=== PATIENT | male | born 1990 | race Caucasian/White ===

== ENCOUNTER 2025-11-19 17:37 | Observation (INO) ==
--- NOTE | 2025-11-19 17:48 | Emergency Department Note ---
Impression & Plan Choledocholithiasis, Cholelithiasis, Transaminitis ED Provider Note CHIEF COMPLAINT: Abdominal pain HISTORY OF PRESENTING ILLNESS: This 34-year-old male patient presents to the emergency department with his fiance and parents for evaluation of right upper quadrant abdominal pain for the past 3 days. He has also been having nausea and vomiting. His urine was darker in color as well, but no other urinary symptoms. Has not had much of an appetite and has not been drinking much from the nausea and vomiting. No measured fevers, but he has had chills and sweats. He denies any chest pain or SOB, but has increased pain in the RUQ when he takes a deep breath. He denies any problems with constipation, diarrhea, or change in his bowel movements. The patient is concerned about his gallbladder. He has had intermittent problems with his gallbladder over the past 1.5 years. Has not seen a surgeon for his gallbladder. REVIEW OF SYSTEMS: See HPI for pertinent positives and pertinent negatives. ALLERGIES: Amoxicillin - abdominal pain and diarrhea MEDICATIONS: None PAST MEDICAL HISTORY: Denies pertinent past medical or pertinent past surgical history other than T&A PHYSICAL EXAM: VITALS: Vitals are noted on the nurse's note and reviewed by myself. GENERAL: Non toxic, in no acute distress, non-diaphoretic. SKIN: No obvious significant jaundice. Capillary refill <2 sec. EYES: PERRLA. EOMI. Conjunctivae without injection. Possible mild scleral icterus. NOSE: Patent without discharge. MOUTH: Mucous membranes moist. Uvula midline. Airway patent. NECK: Supple without nuchal rigidity. HEART: Regular rate and rhythm without murmurs gallops or rubs. LUNGS: Clear to auscultation bilaterally without wheezes, rales or rhonchi. No retractions or accessory muscle use. ABDOMEN: Positive bowel sounds x 4. Normal tympanic percussion. Soft, tender to palpation in the right upper quadrant. No masses or hepatosplenomegaly. Mondragon sign negative. No CVA tenderness. No guarding, rigidity, or rebound tenderness. No focal RLQ or LLQ tenderness. MUSCULOSKELETAL: No gross musculoskeletal defects. NEURO: Patient was alert and oriented. No focal neurological deficits. DIFFERENTIAL DIAGNOSIS: Differential diagnosis includes hepatitis, pancreatitis, cholecystitis, cholelithiasis, appendicitis, kidney stone, pyelonephritis, UTI, gastritis, gastroenteritis, mesenteric adenitis, obstruction, constipation, hernia, abdominal abscess, perforation, diverticulitis, IBD, ischemic colitis, abdominal aortic aneurysm, testicular torsion, prostatitis, or others. ED COURSE AND MEDICAL DECISION MAKING: MEDICATIONS GIVEN: 1 L normal saline solution bolus. Tylenol 1000 mg IV and Zofran 4 mg IV. Zosyn 4.5 g IV. MONITOR: Continuous health unit coordinator: Order was placed for continuous health unit coordinator. Patient was placed on the health unit coordinator and continuous pulse ox. Patient was noted to be in normal sinus rhythm at an initial rate of 90 bpm per my interpretation. INTERPRETATION OF LABS: I interpreted the labs with full lab results as below in the lab section of this note. Laboratory results pertinent to the emergent complaint are discussed in the MDM section below. The patient was advised to follow up with their PCP and/or specialist(s) for further outpatient monitoring and management of any abnormal results. INTERPRETATION OF IMAGING: Imaging studies were interpreted by myself and read by radiology as per the imaging section of this note. The patient was advised to follow up with their PCP and/or specialist(s) for further outpatient management of any non-emergent abnormal findings. CONSULTATIONS: Dr. Senior of GI. Dr. Laboy of general surgery. On-call hospitalist MDM SUMMARY: I examined the patient. The patient has had right upper quadrant abdominal pain for the past 3 days. He has had intermittent problems with his gallbladder for the past 1.5 years per patient, but has not seen a surgeon for his gallbladder symptoms. The patient started with darker urine as well as decreased appetite, nausea, vomiting, chills, and sweats along with the upper abdominal pain today. An IV lock was placed and labs were drawn. The patient was given 1 L normal saline solution bolus. He was given Tylenol 1000 mg IV and Zofran 4 mg IV prior to the results of his elevated LFTs. The patient declined any additional medication for pain while in the ER. The patient's white blood cell count was elevated at 13.43. Hemoglobin normal at 16.6. Platelet count normal at 264. INR normal at 1.0 and PT normal at 10.8. Glucose elevated at 115, total bilirubin elevated 8.8, AST elevated 206, ALT elevated at 583, and alk phos elevated at 205. CMP otherwise normal. Magnesium normal. Lipase normal. Urinalysis with 1+ protein, trace ketones, positive nitrite, 3+ bilirubin, 1+ leukocyte esterase, and urine mucus. Chest x-ray negative for acute cardiopulmonary etiology. CT scan of the abdomen and pelvis with IV contrast showed cholelithiasis and choledocholithiasis resulting in mild intra and extrahepatic biliary ductal dilation. Right upper quadrant ultrasound showed cholelithiasis with common bile duct distention etiology which is not clearly seen on this exam. No sonographic evidence of acute cholecystitis. The patient did have abdominal pain and diarrhea after amoxicillin, but not a true amoxicillin allergy. The patient was given Zosyn 4.5 g IV without reaction in the ER. I spoke with Dr. Senior of GI via [place] text and he will be available for ERCP and GI consult. He recommended continuing antibiotics. He does not feel that MRCP is needed at this time. I also spoke with Dr. Laboy of general surgery who presented to the emergency department and evaluated the patient. Please refer to his dictation for further details. The patient will be admitted to the hospitalist service with GI and surgery on consult. Please refer to their dictation for further details. The patient's care was transferred in stable condition. DIAGNOSIS: Cholelithiasis with choledocholithiasis Past Med/Surg History Problem List (Updated 11/20/25 @ 02:27 by Junie Ramirez PA-C) Cholelithiasis (Acute) Abnormal urinalysis Transaminitis (Acute) Choledocholithiasis (Acute) Obese FHx: Crohn's disease In Father Medical History Acute URI of multiple sites Surgical History [place] teeth extracted History of tonsillectomy Family History Other Diabetes Denies family history of Ovarian cancer Prostate cancer Myocardial infarction Breast cancer Colorectal cancer Hypertension Social History Smoking Status: Never smoker Tobacco Type: Declines Second Hand Exposure: No; Do You Dip or Chew Tobacco: No; Tobacco Cessation Education Requested by Patient: No Hx Alcohol Use: No Hx Substance Use: No Preferred Language: Malay Communication Ability: Effective Grid Operator Required: No Beliefs That Will Affect Care: None marital status: Single Current Living Situation: Significant Other current occupational status: employed current occupation: Close Other Information That Helps Us Care for You: No Feels Safe at Home: Yes Safety Concerns: Feels Safe At This Time Diet: regular caffeine: Yes (coffee tea and soda) during the past year weight has: remained stable Dental Care, Regularly: No Physical Activity Frequency: 3-4 Times per Week Seatbelt Use: always Sunscreen Use: No Assistive Devices: None Allergies Allergies Allergy/AdvReac Type Severity Reaction Status Date / Time No Known Allergies Allergy Verified 06/14/25 11:35 Home Meds Home Medications Medication Instructions Recorded Confirmed No Known Home Medications 11/19/25 11/19/25 Results & Data (ED) Vital Signs Vital Signs - 24 hr 11/19/25 17:37 11/19/25 17:37 11/19/25 18:50 Temperature 36.6 C Temperature Source Temporal Artery Scan Pulse Rate 98 H 92 H Pulse Rate [Finger] Respiratory Rate 18 16 Blood Pressure 181/118 H Blood Pressure [Right Arm] Blood Pressure Mean 139 Blood Pressure Mean [Right Arm] Pulse Oximetry 100 Oxygen Delivery Method Sepsis Recent Fever Within 48 Hours No Sepsis New/Unexplained Change in Mental Status N/A Sepsis Action Taken by Nursing No Action Required 11/19/25 20:10 11/19/25 22:10 Temperature Temperature Source Pulse Rate Pulse Rate [Finger] 88 84 Respiratory Rate 20 18 Blood Pressure Blood Pressure [Right Arm] 137/92 140/92 Blood Pressure Mean Blood Pressure Mean [Right Arm] 107 108 Pulse Oximetry 96 97 Oxygen Delivery Method Room Air Room Air Sepsis Recent Fever Within 48 Hours Sepsis New/Unexplained Change in Mental Status Sepsis Action Taken by Nursing Laboratory Data 11/19/25 17:54 11/19/25 17:54 Lab Results 11/19/25 Range/Units 17:54 WBC 13.43 H (4.8-10.8) K/ul RBC 5.68 (4.70-6.10) M/uL Hgb 16.6 (14.0-18.0) g/dL Hct 46.5 (42.0-52.0) % MCV 81.9 (80.0-100.0) fL MCH 29.2 (25.0-34.0) pg MCHC 35.7 (32.0-36.0) g/dL RDW Std Deviation 36.3 L (36.4-46.3) fL RDW Coeff of Lor 12.2 (11.5-14.5) % Plt Count 264 (130-400) K/uL MPV 10.3 (9.4-12.4) fL Immature Gran % (Auto) 0.5 % Neut % (Auto) 86.5 % Lymph % (Auto) 7.6 % [place] % (Auto) 4.2 % Eos % (Auto) 1.0 % Baso % (Auto) 0.2 % Neut # (Auto) 11.61 H (1.40-6.50) K/uL Lymph # (Auto) 1.02 L (1.20-3.40) K/uL [place] # (Auto) 0.57 (0.11-0.59) K/uL Eos # (Auto) 0.13 (0.00-0.50) K/uL Baso # (Auto) 0.03 (0.00-0.20) K/uL Immature Gran # (Auto) 0.07 (0.01-0.20) K/uL PT 10.8 (9.0-12.0) Seconds INR 1.0 (0.9-1.1) Sodium 139 (136-145) mmol/L Potassium 3.9 (3.5-5.1) mmol/L Chloride 104 (98-107) mmol/L Carbon Dioxide 26 (21-32) mmol/L Anion Gap 9 (3-11) BUN 10 (6-23) mg/dl Creatinine 1.08 (0.6-1.4) mg/dl Est Cr Clr Drug Dosing 107.6 ml/min eGFR 91.78 BUN/Creatinine Ratio 9.3 L (10-20) Glucose 115 H (70-99(Fasting)) mg/dl Calcium 9.6 (8.6-10.3) mg/dl Magnesium 2.1 (1.7-2.4) mg/dl Total Bilirubin 8.8 H (0.2-1.0) mg/dl AST 206 H (13-39) U/L ALT 583 H (7-52) U/L Alkaline Phosphatase 205 H (34-104) U/L Total Protein 7.6 (6.0-8.3) gm/dl Albumin 4.8 (3.4-5.0) gm/dl Globulin 2.8 (2.5-4.0) gm/dl Albumin/Globulin Ratio 1.7 (0.9-2) Lipase 25 (11-82) U/L Administered Medications Pantoprazole Sodium (Protonix) 40 mg in 10 mls @ 5 mls/min IV DAILY FACUNDO Stop: 12/19/25 23:01 Last Admin: 11/19/25 23:48 Dose: 5 mls/min Documented By: MOISES Piperacillin Sod/Tazobactam Sod (Zosyn) 4.5 gm in 100 mls @ 25 mls/hr IV Q8H FACUNDO; Protocol Stop: 11/30/25 00:00 Last Admin: 11/19/25 23:54 Dose: 25 mls/hr Documented By: MOISES Sodium Chloride (Nss) 1,000 mls @ 80 mls/hr IV .[id number] FACUNDO Stop: 11/21/25 00:14 Last Admin: 11/19/25 23:56 Dose: 80 mls/hr Documented By: MOISES Discontinued Medications Sodium Chloride (Nss) 1,000 mls @ 999 mls/hr IV .[id number] ONE Stop: 11/19/25 18:57 Last Infusion: 11/19/25 19:27 Dose: Infused Documented By: Admin: 11/19/25 18:03 Dose: 999 mls/hr Documented By: ASA Acetaminophen (Ofirmev) 1,000 mg in 100 mls @ 400 mls/hr IV NOW STA Stop: 11/19/25 18:11 Last Infusion: 11/19/25 19:27 Dose: Infused Documented By: Admin: 11/19/25 18:02 Dose: 400 mls/hr Documented By: ASA Piperacillin Sod/Tazobactam Sod (Zosyn) 4.5 gm in 100 mls @ 200 mls/hr IV NOW ONE; Protocol Stop: 11/19/25 19:54 Last Infusion: 11/19/25 20:41 Dose: Infused Documented By: Admin: 11/19/25 20:07 Dose: 200 mls/hr Documented By: ROSALEE Lactated Ringer's (Lr) 1,000 mls @ 80 mls/hr IV .[id number] FACUNDO Stop: 11/22/25 23:01 Last Admin: 11/20/25 01:50 Dose: Not Given Documented By: MOISES Ioversol (Optiray 320 100ml) 93 ml IV ONCE ONE Stop: 11/19/25 19:03 Last Admin: 11/19/25 19:02 Dose: 93 ml Documented By: MARY Ondansetron HCl (Ondansetron Inj 2 Mg/Ml 2 Ml Vial) 4 mg IV NOW STA Stop: 11/19/25 17:58 Last Admin: 11/19/25 18:02 Dose: 4 mg Documented By: ASA Imaging Data Radiologist's Impression: Abdomen/Pelvis CT 11/19/25 17:43 CT of the abdomen pelvis with contrast Technique: Postcontrast axial images abdomen pelvis. Coronal and sagittal reformatted images made available for review Reference is made to prior ultrasound performed earlier on the same date Findings: Cholelithiasis without evidence of acute cholecystitis.. Mild intra and extrahepatic biliary ductal dilatation secondary to a common bile duct stone measuring 6 mm at the ampulla. Splenomegaly. Remaining solid abdominal organs unremarkable in appearance. No free air or intestinal obstruction. Urinary bladder is unremarkable. Bone windows demonstrate no focal abnormality Impression Cholelithiasis with choledocholithiasis resulting in mild intra and extrahepatic biliary ductal dilatation. Electronically signed by Amado Aly 11-19-2025 8:17 PM Chest X-Ray 11/19/25 17:57 Technique: A frontal view of the chest was obtained Findings: There are no confluent pulmonary infiltrates. The heart size is within normal limits. No pleural effusion or pneumothorax is seen. There is no definite pulmonary nodule. No fracture is noted. No foreign body is seen Impression: No active disease Electronically signed by Modesto Rios 11-19-2025 7:06 PM Gallbladder Ultrasound 11/19/25 19:17 Right upper quadrant ultrasound Technique: Grayscale and color Doppler ultrasound images of the right upper quadrant No comparison Findings: Common bile duct is dilated measuring 9.4 mm. Gallbladder wall is within normal limits. Cholelithiasis.Liver is unremarkable. Gallbladder lucas within normal limits. No pericholecystic fluid. Portal vein is patent. Pancreas is obscured by overlying bowel gas. Impression Cholelithiasis with common bile duct distention etiology which is not clearly seen on his exam. MRCP may be helpful further evaluation. No sonographic evidence of acute cholecystitis. Electronically signed by Amado Aly 11-19-2025 8:19 PM Discharge Plan Visit Data Chief Complaint: Abdominal Pain Stated Complaint: RUQ PAIN PAST 3 DAYS, CONCERN ABT GALLBLADDER ED Provider: Isabel Youngblood ED Midlevel Provider: Junie Ramirez Discharge Problem: Choledocholithiasis, Cholelithiasis, Transaminitis Patient Disposition: Admitted As Inpatient Condition: Fair Discharge Instructions Interventions: ED Discharge Assessment Last Done: 11/19/25 22:48
[2025-11-19] MEDS: ONDANSETRON INJ 2 MG/ML 2 ML VIAL IV STA (18:02)
[2025-11-19] MEDS: ACETAMINOPHEN 1,000 MG/100 ML VIAL IV STA (18:02)
[2025-11-19] MEDS: SODIUM CHLORIDE 0.9% 1,000 ML IV ONE (18:03)
[2025-11-19 18:21] LABS: Hematocrit (blood only) 46.5 % (42.0-52.0); Hemoglobin 16.6 g/dL (14.0-18.0); Immature Granulocytes # (auto) 0.07 K/uL (0.01-0.20); Immature Granulocytes % (auto) 0.5 %; Mean Corpuscular Hemoglobin 29.2 pg (25.0-34.0); Mean Corpuscular Volume 81.9 fL (80.0-100.0); Platelet Count 264 K/uL (130-400); RDW Standard Deviation 36.3 fL (36.4-46.3); Red Blood Count 5.68 M/uL (4.70-6.10); White Blood Count 13.43 K/ul (4.8-10.8)
[2025-11-19 18:38] LABS: Anion Gap 9.0 (3-11); Blood Urea Nitrogen 10.0 mg/dl (6-23); Calcium 9.6 mg/dl (8.6-10.3); Carbon Dioxide 26.0 mmol/L (21-32); Chloride 104.0 mmol/L (98-107); Creatinine Clr Calc Pharmacy 107.6 ml/min; Glucose 115.0 mg/dl (70-99(Fasting)); Potassium 3.9 mmol/L (3.5-5.1); Sodium 139.0 mmol/L (136-145)
[2025-11-19 18:46] LABS: INR 1.0 (0.9-1.1); Prothrombin Time 10.8 Seconds (9.0-12.0)
[2025-11-19 18:55] LABS: Appearance Urine Clear (Clear); Bacteria Urine Automated None Seen (None Seen); Cast Urine Automated 0-2 /lpf (0-2); Epithelial Cell Urine Auto 0-2 /hpf (0-2); Glucose Urine UA Negative (Negative); RBC Urine Automated 0-2 /hpf (0-2); WBC Urine Automated 0-5 /hpf (0-5)
[2025-11-19] MEDS: OPTIRAY 320 100ml IV ONE (19:02)
[2025-11-19 19:06] LABS: Alanine Aminotransferase 583.0 U/L (7-52); Albumin Globulin Ratio 1.7 (0.9-2); Albumin Level 4.8 gm/dl (3.4-5.0); Alkaline Phosphatase 205.0 U/L (34-104); Bilirubin,Total 8.8 mg/dl (0.2-1.0); Globulin 2.8 gm/dl (2.5-4.0); Lipase 25.0 U/L (11-82); Magnesium 2.1 mg/dl (1.7-2.4); Total Protein 7.6 gm/dl (6.0-8.3)
--- NOTE | 2025-11-19 19:06 | XRay Report ---
Technique: A frontal view of the chest was obtained Findings: There are no confluent pulmonary infiltrates. The heart size is within normal limits. No pleural effusion or pneumothorax is seen. There is no definite pulmonary nodule. No fracture is noted. No foreign body is seen Impression: No active disease Electronically signed by Modesto Rios 11-19-2025 7:06 PM
[2025-11-19] MEDS: PIPERACILLIN/TAZOBACTAM 4.5 GM/100 ML BAG IV ONE (20:07)
--- NOTE | 2025-11-19 20:17 | CT Scan Report ---
CT of the abdomen pelvis with contrast Technique: Postcontrast axial images abdomen pelvis. Coronal and sagittal reformatted images made available for review Reference is made to prior ultrasound performed earlier on the same date Findings: Cholelithiasis without evidence of acute cholecystitis.. Mild intra and extrahepatic biliary ductal dilatation secondary to a common bile duct stone measuring 6 mm at the ampulla. Splenomegaly. Remaining solid abdominal organs unremarkable in appearance. No free air or intestinal obstruction. Urinary bladder is unremarkable. Bone windows demonstrate no focal abnormality Impression Cholelithiasis with choledocholithiasis resulting in mild intra and extrahepatic biliary ductal dilatation. Electronically signed by Amado Aly 11-19-2025 8:17 PM
--- NOTE | 2025-11-19 20:19 | Ultrasound Report ---
Right upper quadrant ultrasound Technique: Grayscale and color Doppler ultrasound images of the right upper quadrant No comparison Findings: Common bile duct is dilated measuring 9.4 mm. Gallbladder wall is within normal limits. Cholelithiasis.Liver is unremarkable. Gallbladder lucas within normal limits. No pericholecystic fluid. Portal vein is patent. Pancreas is obscured by overlying bowel gas. Impression Cholelithiasis with common bile duct distention etiology which is not clearly seen on his exam. MRCP may be helpful further evaluation. No sonographic evidence of acute cholecystitis. Electronically signed by Amado Aly 11-19-2025 8:19 PM
--- NOTE | 2025-11-19 20:51 | Surgery Consultation ---
Date of Consultation November 19, 2025 Assessment & Plan (1) Choledocholithiasis: 34-year-old presents with choledocholithiasis. There is no evidence of cholecystitis on the ultrasound. He does have a bilirubin of 8. He will be admitted to the medicine service. He will be seen by gastroenterology who will need to do an ERCP. We will follow peripherally. History of Present Illness Reason for Consultation: Choledocholithiasis with cholecystitis Requesting Physician: ED physician Attending Physician: ED physician History of Present Illness 34-year-old gentleman whose been having right upper quadrant abdominal pain on and off for the past 3 weeks. This worsened on Tuesday. It was accompanied by nausea and vomiting. He then noticed some yellowing of his eyes. He has not been eating much. He denies fevers and chills. He denies other complaints. No abdominal surgeries in the past. Allergies Allergy/AdvReac Type Severity Reaction Status Date / Time No Known Allergies Allergy Verified 06/14/25 11:35 Patient History Medical History Acute URI of multiple sites Surgical History [place] teeth extracted History of tonsillectomy Family History Other Diabetes Denies family history of Ovarian cancer Prostate cancer Myocardial infarction Breast cancer Colorectal cancer Hypertension Social History Smoking Status: Never smoker Second Hand Exposure: No; Do You Dip or Chew Tobacco: No; Hx Alcohol Use: No Hx Substance Use: No Preferred Language: Pashto Communication Ability: Effective marital status: Single Current Living Situation: Significant Other current occupational status: employed current occupation: [employer] Feels Safe at Home: Yes Diet: regular caffeine: Yes (coffee tea and soda) during the past year weight has: remained stable Dental Care, Regularly: No Physical Activity Frequency: 3-4 Times per Week Seatbelt Use: always Sunscreen Use: No Review of Systems Review of Systems: All systems reviewed & are unremarkable except as noted in HPI & below Physical Exam Constitutional: WD/WN, vitals as above Eyes: PERRL, conjunctivae normal, anicteric sclerae Neck: trachea midline, no thyromegaly Respiratory: normal respiratory effort; no respiratory distress and no labored breathing Cardiovascular: Rate/Rhythm: regular rate and regular rhythm Gastrointestinal (Abdomen): Inspection/Auscultation: abdomen normal to inspection; abdomen not distended Percussion/Palpation: abdomen soft; abdomen nontender, no guarding and abdomen not rigid Skin: no rashes, warm and dry Psychiatric: A+Ox3, euthymic affect Results & Data Vital Signs (Past 12 Hours) Vital Signs Temp Pulse Pulse Resp BP BP Pulse Ox 11/19/25 20:10 88 20 137/92 96 11/19/25 18:50 92 H 11/19/25 17:37 16 11/19/25 17:37 36.6 C 98 H 18 181/118 H 100 O2 Del Method 11/19/25 20:10 Room Air 11/19/25 18:50 11/19/25 17:37 11/19/25 17:37 Laboratory Results 11/19/25 11/19/25 Range/Units Unknown 17:54 WBC 13.43 H (4.8-10.8) K/ul RBC 5.68 (4.70-6.10) M/uL Hgb 16.6 (14.0-18.0) g/dL Hct 46.5 (42.0-52.0) % MCV 81.9 (80.0-100.0) fL MCH 29.2 (25.0-34.0) pg MCHC 35.7 (32.0-36.0) g/dL RDW Std Deviation 36.3 L (36.4-46.3) fL RDW Coeff of Lor 12.2 (11.5-14.5) % Plt Count 264 (130-400) K/uL MPV 10.3 (9.4-12.4) fL Immature Gran % (Auto) 0.5 % Neut % (Auto) 86.5 % Lymph % (Auto) 7.6 % [place] % (Auto) 4.2 % Eos % (Auto) 1.0 % Baso % (Auto) 0.2 % Neut # (Auto) 11.61 H (1.40-6.50) K/uL Lymph # (Auto) 1.02 L (1.20-3.40) K/uL [place] # (Auto) 0.57 (0.11-0.59) K/uL Eos # (Auto) 0.13 (0.00-0.50) K/uL Baso # (Auto) 0.03 (0.00-0.20) K/uL Immature Gran # (Auto) 0.07 (0.01-0.20) K/uL PT 10.8 (9.0-12.0) Seconds INR 1.0 (0.9-1.1) Sodium 139 (136-145) mmol/L Potassium 3.9 (3.5-5.1) mmol/L Chloride 104 (98-107) mmol/L Carbon Dioxide 26 (21-32) mmol/L Anion Gap 9 (3-11) BUN 10 (6-23) mg/dl Creatinine 1.08 (0.6-1.4) mg/dl Est Cr Clr Drug Dosing 107.6 ml/min eGFR 91.78 BUN/Creatinine Ratio 9.3 L (10-20) Glucose 115 H (70-99(Fasting)) mg/dl Calcium 9.6 (8.6-10.3) mg/dl Magnesium 2.1 (1.7-2.4) mg/dl Total Bilirubin 8.8 H (0.2-1.0) mg/dl AST 206 H (13-39) U/L ALT 583 H (7-52) U/L Alkaline Phosphatase 205 H (34-104) U/L Total Protein 7.6 (6.0-8.3) gm/dl Albumin 4.8 (3.4-5.0) gm/dl Globulin 2.8 (2.5-4.0) gm/dl Albumin/Globulin Ratio 1.7 (0.9-2) Lipase 25 (11-82) U/L Urine Color [place] Urine Appearance Clear (Clear) Urine pH 5.5 (4.5-7.5) Ur Specific [place] 1.022 (1.000-1.030) Urine Protein 1+ H (Negative) Urine Glucose (UA) Negative (Negative) Urine Ketones Trace H (Negative) Urine Blood Negative (Negative) Urine Nitrite Positive A (Negative) Urine Bilirubin 3+ H (Negative) Urine Urobilinogen Negative (Negative) Ur Leukocyte Esterase 1+ H (Negative) Urine WBC (Auto) 0-5 (0-5) /hpf Urine RBC (Auto) 0-2 (0-2) /hpf U Hyaline Cast (Auto) 0-2 (0-2) /lpf U Epithel Cells (Auto) 0-2 (0-2) /hpf Urine Bacteria (Auto) None Seen (None Seen) Urine Mucus Present A (None Prsent) Urine Comment Diagnostic Findings Right upper quadrant ultrasound Technique: Grayscale and color Doppler ultrasound images of the right upper quadrant No comparison Findings: Common bile duct is dilated measuring 9.4 mm. Gallbladder wall is within normal limits. Cholelithiasis.Liver is unremarkable. Gallbladder lucas within normal limits. No pericholecystic fluid. Portal vein is patent. Pancreas is obscured by overlying bowel gas. Impression Cholelithiasis with common bile duct distention etiology which is not clearly seen on his exam. MRCP may be helpful further evaluation. No sonographic evidence of acute cholecystitis. Electronically signed by Amado Aly 11-19-2025 8:19 PM
--- NOTE | 2025-11-19 21:48 | History & Physical Report ---
Date of Service November 19, 2025 Assessment & Plan (1) Choledocholithiasis: (2) Transaminitis: (3) Abnormal urinalysis: Remy Huizar is a pleasant 34yo gentleman with no significant PMH who presented to the ED for 3-week history of waxing and waning abdominal pain that gradually worsened since 11/17. The pain was described as sharp, located in the RUQ associated with nausea, vomiting, and loss of appetite. Lab workup in the ED notable elevated bilirubin level, transaminitis, leukocytosis (13), and choledocholithiasis. He will be admitted and managed for choledocholithiasis. #Choledocholithiasis #Cholelithiasis CT imaging notable for choledocholithiasis with mild intra and extrahepatic biliary ductal dilatation Bilirubin 8.8 -admit to med-surg -IV PPI for acid suppression -Pain management: morphine 2mg q3hrs prn for moderate pain and 4mg q3hrs for severe pain -Zofran prn for nausea, vomiting -continue Zosyn 4.5g q8hrs -Gen-Surg on board, appreciate recs -GI consulted -anticipate ERCP tomorrow -NPO due to anticipated intervention -IVF, LR 80mls/hr -AM labs #Transaminitis secondary to above AST 206, ALT 583, alk phos 205 -follow AM labs -avoid acetaminophen #Abnormal Urinalysis secondary to above UA: urine bili elevated -follow urine culture VTE prophylaxis: low risk, SCDs History of Present Illness Chief Complaint: RUQ Pain Primary Care Provider: Júnior Chew DO Bhupendra is a pleasant 34yo gentleman with no significant PMH who presented to the ED for 3-week history of waxing and waning abdominal pain that gradually worsened since 11/17. The pain was described as sharp, located in the RUQ associated with nausea, vomiting, and loss of appetite. He has no history of abdominal surgeries. Denies fevers, chills, CP, SOB, or complaints. Allergies Allergy/AdvReac Type Severity Reaction Status Date / Time No Known Allergies Allergy Verified 11/20/25 11:47 Home Medications Medication Instructions Recorded Confirmed Type No Known Home Medications 11/19/25 11/19/25 History Past Med/Surg History Problem List Choledocholithiasis Cholelithiasis (Acute) Abnormal urinalysis Transaminitis (Acute) Choledocholithiasis (Acute) Obese FHx: Crohn's disease In Father Medical History Acute URI of multiple sites Surgical History [place] teeth extracted History of tonsillectomy Family History Other Diabetes Denies family history of Ovarian cancer Prostate cancer Myocardial infarction Breast cancer Colorectal cancer Hypertension Social History Smoking Status: Never smoker Tobacco Type: Declines Second Hand Exposure: No; Do You Dip or Chew Tobacco: No; Tobacco Cessation Education Requested by Patient: No Hx Alcohol Use: No Hx Substance Use: No Preferred Language: Icelandic Communication Ability: Effective Net Finisher Required: No Beliefs That Will Affect Care: None marital status: Single Current Living Situation: Significant Other current occupational status: employed current occupation: [employer] Other Information That Helps Us Care for You: No Feels Safe at Home: Yes Safety Concerns: Feels Safe At This Time Diet: regular caffeine: Yes (coffee tea and soda) during the past year weight has: remained stable Dental Care, Regularly: No Physical Activity Frequency: 3-4 Times per Week Seatbelt Use: always Sunscreen Use: No Assistive Devices: None Review of Systems Review of Systems: per HPI Physical Exam Physical Exam: GA: well groomed, well nourished in no apparent distress. AAOx3 HEENT: head normocephalic, atraumatic. EOMI. Scleral icterus RESP: vesicular breath sounds b/l. No wheezes, rhonchi, or rales CARDIOVASCULAR: S1 and S2 heard. No murmurs, rubs, or gallops. Radial pulses 2+ b/l RRR GI: no tenderness or masses felt to palpation. Negative Mondragon's sign MSK: no gross abnormalities or focal deficits SKIN: warm, dry, no edema PSYCH: appropriate mood and affect NEURO: no focal deficits. speech fluent Results & Data Results & Data Vital Signs (Past 12 Hours) Vital Signs Temp Pulse Pulse Resp BP BP Pulse Ox 11/19/25 20:10 88 20 137/92 96 11/19/25 18:50 92 H 11/19/25 17:37 16 11/19/25 17:37 36.6 C 98 H 18 181/118 H 100 O2 Del Method 11/19/25 20:10 Room Air 11/19/25 18:50 11/19/25 17:37 11/19/25 17:37 Supervising Physician Co-Signing Physician Notes Attending addendum: I have physically seen this patient, have supervised the medical residents activities, and agree with the H&P unless as otherwise noted. Assessment and Plan: The patient is a 34-year-old male with no significant past medical history who presents to the emergency department with 3 weeks of waxing waning sharp right upper quadrant abdominal pain that has gradually worsened since 11/17. He is also noted worsening nausea, vomiting and loss of appetite. Significant laboratory abnormalities in the emergency department: Total bilirubin 8.8, AST 206, ALT 583, alkaline phosphatase 205. Urinalysis significant for bilirubin. CT scan abdomen pelvis and ultrasound of gallbladder abnormal. [facility] to [facility]ology and general surgery. #Choledocholithiasis/cholelithiasis/abnormal LFTs- CT scan abdomen pelvis notes choledocholithiasis with mild intra and extrahepatic biliary ductal dilatation. Gallbladder ultrasound cholelithiasis with common bile duct distention with unclear etiology. Radiology notes that MRCP may be helpful for further evaluation. Gastroenterology consult by phone from ED suggest no MRCP needed at this time and they will assess in the a.m.. N.p.o. Zosyn 4.5 g IV every 8 hours Zofran 4 mg IV every 6 hours as needed Pantoprazole 40 mg IV daily Gastroenterology and general surgery consult already by the ED LR at 80 mL/h Repeat CBC with differential and chemistry profile in the a.m. Remaining orders and notations as noted Resident Activity Tracking Resident Involvement: Resident Care Provided Care Provided: Adult [facility] Medicine
[2025-11-19] MEDS ORDERED: MELATONIN 3 MG TAB PO PRN (23:02)
[2025-11-19] MEDS ORDERED: MoRPHine SULFATE 4 MG/ML 1 ML CARP\\VIAL IV PRN (23:02)
[2025-11-19] MEDS ORDERED: MoRPHine SULFATE 2 MG/ML CARP IV PRN (23:02)
[2025-11-19] MEDS ORDERED: POLYETHYLENE (MIRALAX) 17 GM PACK PO PRN (23:02)
[2025-11-19] MEDS ORDERED: ONDANSETRON INJ 2 MG/ML 2 ML VIAL IV PRN (23:02)
[2025-11-19] MEDS ORDERED: ALUMINUM/MAGNESIUM SUSP 30 ML UDC PO PRN (23:02)
[2025-11-19] MEDS: PANTOprazole 40 MG/10 ML SYR IV SCH (23:48)
[2025-11-19] MEDS: PIPERACILLIN/TAZOBACTAM 4.5 GM/100 ML BAG IV SCH (23:54)
[2025-11-19] MEDS: SODIUM CHLORIDE 0.9% 1,000 ML IV SCH (23:56)
[2025-11-20] MEDS: LACTATED RINGER'S 1,000 ML IV SCH (01:50)
[2025-11-20 06:25] LABS: Hematocrit (blood only) 41.8 % (42.0-52.0); Hemoglobin 14.9 g/dL (14.0-18.0); Immature Granulocytes # (auto) 0.02 K/uL (0.01-0.20); Immature Granulocytes % (auto) 0.3 %; Mean Corpuscular Hemoglobin 29.5 pg (25.0-34.0); Mean Corpuscular Volume 82.8 fL (80.0-100.0); Platelet Count 228 K/uL (130-400); RDW Standard Deviation 36.8 fL (36.4-46.3); Red Blood Count 5.05 M/uL (4.70-6.10); White Blood Count 7.00 K/ul (4.8-10.8)
[2025-11-20 06:58] LABS: Alanine Aminotransferase 420.0 U/L (7-52); Albumin Globulin Ratio 1.7 (0.9-2); Albumin Level 4.1 gm/dl (3.4-5.0); Alkaline Phosphatase 180.0 U/L (34-104); Anion Gap 8.0 (3-11); Bilirubin,Total 8.4 mg/dl (0.2-1.0); Blood Urea Nitrogen 8.0 mg/dl (6-23); Calcium 9.2 mg/dl (8.6-10.3); Carbon Dioxide 27.0 mmol/L (21-32); Chloride 106.0 mmol/L (98-107); Creatinine Clr Calc Pharmacy 103.7 ml/min; Globulin 2.4 gm/dl (2.5-4.0); Glucose 93.0 mg/dl (70-99(Fasting)); Potassium 4.3 mmol/L (3.5-5.1); Sodium 141.0 mmol/L (136-145); Total Protein 6.5 gm/dl (6.0-8.3)
--- NOTE | 2025-11-20 07:36 | Gastrointestinal Consultation ---
Date of Consultation November 20, 2025 Assessment & Plan (1) Choledocholithiasis: Symptoms consistent with biliary colic due to choledocholithiasis as seen on imaging. No signs of cholangitis. Imaging does not suggest acute cholecystitis. Continue IV antibiotics keep NPO. Plan for urgent ERCP today. Risks and benefits of ERCP discussed with patient regarding risk of pancreatitis, bleeding, infection and perforation. (2) Cholelithiasis: (3) Transaminitis: History of Present Illness Reason for Consultation: Biliary colic and choledocholithiasis Attending Physician: Luis Coe MD History of Present Illness Patient admitted with several day history of epigastric pain with some nausea and vomiting. Found to have abnormal liver enzymes and imaging showed cholelithiasis and choledocholithiasis. He denies any fever chills or night sweats. Over the last year and a half he has been having intermittent epigas tric pain lasting several hours occasionally radiating to the back. He presented to the ER because he noted that his eyes were turning yellow and his urine was dark. He has no other significant past medical history. Allergies Allergy/AdvReac Type Severity Reaction Status Date / Time No Known Allergies Allergy Verified 06/14/25 11:35 Home Medications Medication Instructions Recorded Confirmed Type No Known Home Medications 11/19/25 11/19/25 History Patient History Medical History Acute URI of multiple sites Surgical History [place] teeth extracted History of tonsillectomy Family History Other Diabetes Denies family history of Ovarian cancer Prostate cancer Myocardial infarction Breast cancer Colorectal cancer Hypertension Social History Smoking Status: Never smoker Tobacco Type: Declines Second Hand Exposure: No; Do You Dip or Chew Tobacco: No; Tobacco Cessation Education Requested by Patient: No Hx Alcohol Use: No Hx Substance Use: No Preferred Language: Tuvaluan Communication Ability: Effective Punching Machine Operator Required: No Beliefs That Will Affect Care: None marital status: Single Current Living Situation: Significant Other current occupational status: employed current occupation: [employer] Other Information That Helps Us Care for You: No Feels Safe at Home: Yes Safety Concerns: Feels Safe At This Time Diet: regular caffeine: Yes (coffee tea and soda) during the past year weight has: remained stable Dental Care, Regularly: No Physical Activity Frequency: 3-4 Times per Week Seatbelt Use: always Sunscreen Use: No Assistive Devices: None Review of Systems Review of Systems: No fever No chills No SOB No CP GI as per HPI Physical Exam Physical Exam: Eyes; icteric HENT No masses Chest clear to A Cor S1, S2 physiologic Abd: softer nontender no masses Ext no edema Results & Data Vital Signs (Past 12 Hours) Vital Signs Temp Pulse Resp BP Pulse Ox O2 Del Method 11/19/25 22:56 36.9 C 90 18 136/94 97 Room Air 11/19/25 22:56 36.9 C 90 18 136/94 97 Room Air 11/19/25 22:10 84 18 140/92 97 Room Air 11/19/25 20:10 88 20 137/92 96 Room Air Laboratory Results Laboratory Results - last 48 hr 11/19/25 11/19/25 11/20/25 17:54 Unknown 05:51 WBC 13.43 H 7.00 RBC 5.68 5.05 Hgb 16.6 14.9 Hct 46.5 41.8 L MCV 81.9 82.8 MCH 29.2 29.5 MCHC 35.7 35.6 RDW Std Deviation 36.3 L 36.8 RDW Coeff of Lor 12.2 12.1 Plt Count 264 228 MPV 10.3 10.4 Immature Gran % (Auto) 0.5 0.3 Neut % (Auto) 86.5 76.6 Lymph % (Auto) 7.6 13.3 [place] % (Auto) 4.2 7.9 Eos % (Auto) 1.0 1.6 Baso % (Auto) 0.2 0.3 Neut # (Auto) 11.61 H 5.37 Lymph # (Auto) 1.02 L 0.93 L [place] # (Auto) 0.57 0.55 Eos # (Auto) 0.13 0.11 Baso # (Auto) 0.03 0.02 Immature Gran # (Auto) 0.07 0.02 PT 10.8 INR 1.0 Sodium 139 141 Potassium 3.9 4.3 Chloride 104 106 Carbon Dioxide 26 27 Anion Gap 9 8 BUN 10 8 Creatinine 1.08 1.12 Est Cr Clr Drug Dosing 107.6 103.7 eGFR 91.78 87.86 BUN/Creatinine Ratio 9.3 L 7.1 L Glucose 115 H 93 Calcium 9.6 9.2 Magnesium 2.1 Total Bilirubin 8.8 H 8.4 H AST 206 H 136 H ALT 583 H 420 H Alkaline Phosphatase 205 H 180 H Total Protein 7.6 6.5 Albumin 4.8 4.1 Globulin 2.8 2.4 L Albumin/Globulin Ratio 1.7 1.7 Lipase 25 Urine Color [place] Urine Appearance Clear Urine pH 5.5 Ur Specific [place] 1.022 Urine Protein 1+ H Urine Glucose (UA) Negative Urine Ketones Trace H Urine Blood Negative Urine Nitrite Positive A Urine Bilirubin 3+ H Urine Urobilinogen Negative Ur Leukocyte Esterase 1+ H Urine WBC (Auto) 0-5 Urine RBC (Auto) 0-2 U Hyaline Cast (Auto) 0-2 U Epithel Cells (Auto) 0-2 Urine Bacteria (Auto) None Seen Urine Mucus Present A Urine Comment Diagnostic Findings Abdomen/Pelvis CT 11/19/25 17:43 CT of the abdomen pelvis with contrast Technique: Postcontrast axial images abdomen pelvis. Coronal and sagittal reformatted images made available for review Reference is made to prior ultrasound performed earlier on the same date Findings: Cholelithiasis without evidence of acute cholecystitis.. Mild intra and extrahepatic biliary ductal dilatation secondary to a common bile duct stone measuring 6 mm at the ampulla. Splenomegaly. Remaining solid abdominal organs unremarkable in appearance. No free air or intestinal obstruction. Urinary bladder is unremarkable. Bone windows demonstrate no focal abnormality Impression Cholelithiasis with choledocholithiasis resulting in mild intra and extrahepatic biliary ductal dilatation. Electronically signed by Amado Aly 11-19-2025 8:17 PM Chest X-Ray 11/19/25 17:57 Technique: A frontal view of the chest was obtained Findings: There are no confluent pulmonary infiltrates. The heart size is within normal limits. No pleural effusion or pneumothorax is seen. There is no definite pulmonary nodule. No fracture is noted. No foreign body is seen Impression: No active disease Electronically signed by Modesto Rios 11-19-2025 7:06 PM Gallbladder Ultrasound 11/19/25 19:17 Right upper quadrant ultrasound Technique: Grayscale and color Doppler ultrasound images of the right upper quadrant No comparison Findings: Common bile duct is dilated measuring 9.4 mm. Gallbladder wall is within normal limits. Cholelithiasis.Liver is unremarkable. Gallbladder lucas within normal limits. No pericholecystic fluid. Portal vein is patent. Pancreas is obscured by overlying bowel gas. Impression Cholelithiasis with common bile duct distention etiology which is not clearly seen on his exam. MRCP may be helpful further evaluation. No sonographic evidence of acute cholecystitis. Electronically signed by Amado Aly 11-19-2025 8:19 PM PG Care Time/CCT Total # of Minutes Spent Total Time Spent with Patient: Total time spent is greater than 50% in coordination of care (as documented) at patient's floor/unit and/or counseling patient: Coding Level of Care Code 60279 INT INP/OBS CARE MIN Diagnoses Choledocholithiasis K80.50 Cholelithiasis K80.20 Transaminitis R74.01
--- NOTE | 2025-11-20 09:42 | Hospitalist Progress Note ---
Date of Service November 20, 2025 Assessment & Plan (1) Choledocholithiasis: (2) Transaminitis: (3) Abnormal urinalysis: Plan Bhupendra is a pleasant 34yo gentleman with no significant PMH who presented to the ED for 3-week history of waxing and waning abdominal pain that gradually worsened since 11/17. The pain was described as sharp, located in the RUQ associated with nausea, vomiting, and loss of appetite. Lab workup in the ED notable elevated bilirubin level, transaminitis, leukocytosis (13), and choledocholithiasis. He will be admitted and managed for choledocholithiasis. #Choledocholithiasis #Cholelithiasis - CT imaging notable for choledocholithiasis with mild intra and extrahepatic biliary ductal dilatation - Gallbladder US confirmed dilated common bile duct. - Bilirubin 8.8 (11/19) and is 8.4 on 11/20/25 -IV PPI for acid suppression -Pain management: morphine 2mg q3hrs prn for moderate pain and 4mg q3hrs for severe pain -Zofran prn for nausea, vomiting -continue Zosyn 4.5g q8hrs -Gen-Surg on board. Will follow peripherally. -GI consulted. -ERCP scheduled this afternoon on 11/20/25 -NPO -IVF, LR 80mls/hr -AM labs #Transaminitis secondary to above -AST still extremely elevated but trending downwards. -follow AM labs -avoid acetaminophen #Abnormal Urinalysis secondary to above UA: urine bili elevated -follow urine culture VTE prophylaxis: low risk, SCDs Admission and Anticipated Discharge Date Admission Date: November 19, 2025 Supervising Physician Co-Signing Physician Notes Resident Physician Supervision Note: I personally examined the patient and verified all chatterjee points of history and exam, discussed case, and agree with decision making with Dr. Pabon Patient seen preprocedure he was doing well room was difficult to tell whether he had any scleral icterus or not. Explained procedure to him. Exam of his abdomen was NABS soft and comfortable in the right upper quadrant but no rebound or guarding Choledocholithiasis with ERCP, continue supportive care antibiotics advancement of diet after the procedure consider antibiotics for 3 to 7 days based upon postprocedural course I discussed the case with the resident and agree with the findings and plan as documented in the note. Any exceptions or clarifications are listed here: Documented By: Luis Coe MD Subjective Patient appeared to be comfortable at bedside this morning. He reports that his abdominal pain is staying the same and still describes it as a "sharp and stabbing" pain in the RUQ. He also noted the pain is shooting from his abdomen to the left side of his back. He also said that he has not really been passing gas. His last BM was 11/18/25. Denies chest pain, shortness of breath, N/V, and any ripping/tearing pain. Review of Systems Review of Systems: as per HPI Physical Exam Constitutional: WD/WN, vitals as above Eyes: + scleral abnormality (scleral icterus ) and EOM intact bilaterally Respiratory: normal respiratory effort, lungs clear to auscultation Cardiovascular: Rate/Rhythm: regular rate and regular rhythm Heart Sounds: normal S1 and normal S2; no murmur Gastrointestinal (Abdomen): Inspection/Auscultation: + abnormal bowel sounds (hyperactive ) Percussion/Palpation: abdomen soft; abdomen nontender Skin: + jaundice Psychiatric: Eye Contact: good eye contact Speech: normal rate/rhythm/volume of speech Thought Process: goal directed thought process and linear/logical thought process Results & Data Results & Data Vital Signs (Past 12 Hours) Vital Signs Temp Pulse Resp BP Pulse Ox O2 Del Method 11/20/25 09:13 36.8 C 91 H 16 136/87 96 Room Air 11/19/25 22:56 36.9 C 90 18 136/94 97 Room Air 11/19/25 22:56 36.9 C 90 18 136/94 97 Room Air 11/19/25 22:10 84 18 140/92 97 Room Air Resident Activity Tracking Resident Involvement: Resident Care Provided Care Provided: Adult Hospital Medicine
--- NOTE | 2025-11-20 10:22 | Anesthesiology Consultation ---
Date of Service November 20, 2025 Assessment & Plan Chart Review Chart Review: Acceptable Risk for Surgery and Patient NOT seen in Pre Admission Testing Consults Requested none ASA ASA2 Proposed Anesthesia Anesthesia Type: General History Surgery Operation Date: 11/20/25 08:20 Proposed Procedures p Endoscopic Retrograde Cholangiopancreatogram - Mc Senior MD Height/Weight Height: 5 ft 9 in Weight: 93 kg Allergies Allergy/AdvReac Type Severity Reaction Status Date / Time No Known Allergies Allergy Verified 06/14/25 11:35 Medications Home Medications Medication Instructions Recorded Confirmed Last Taken No Known Home Medications 11/19/25 11/19/25 Unknown Active Medications Generic Name Dose Route Start Last Admin Trade Name Freq PRN Reason Stop Dose Admin Pantoprazole Sodium 40 mg in 10 mls @ 5 mls/min 11/19/25 23:02 11/20/25 08:12 Protonix IV 12/19/25 23:01 5 mls/min DAILY FACUNDO Administration Piperacillin Sod/Tazobactam Sod 4.5 gm in 100 mls @ 25 mls/hr 11/20/25 00:00 11/20/25 08:12 Zosyn IV 11/30/25 00:00 25 mls/hr Q8H FACUNDO Administration Protocol Sodium Chloride 1,000 mls @ 80 mls/hr 11/19/25 23:15 11/19/25 23:56 Nss IV 11/21/25 00:14 80 mls/hr .[id number] FACUNDO Administration Past Medical History Medical History Acute URI of multiple sites Transaminitis choledocholithiasis obese Exercise / Class Metabolic Activity II 4-5 Yardwork/Stairs/Walk up hill Past Family History Family History Other Diabetes Denies family history of Ovarian cancer Prostate cancer Myocardial infarction Breast cancer Colorectal cancer Hypertension Past Surgical History Surgical History [place] teeth extracted History of tonsillectomy Past Anesthesia History No Hx of Anesthesia Complications and No Family Hx of Anesthesia Complications History of PONV No Hx of PONV and No Hx of Motion Sickness Social History Smoking Status: Never smoker Do You Dip or Chew Tobacco: No Hx Alcohol Use: No Hx Substance Use: No substance use type: does not use Physical Exam Vital Signs Last Vital Signs Temp 36.8 C 11/20/25 09:13 Pulse 91 H 11/20/25 09:13 Resp 16 11/20/25 09:13 BP 136/87 11/20/25 09:13 Pulse Ox 96 11/20/25 09:13 O2 Del Method Room Air 11/20/25 09:13 Testing Laboratory Results 11/20/25 05:51 11/20/25 05:51 PT 10.8 Seconds (9.0-12.0) 11/19/25 17:54 INR 1.0 (0.9-1.1) 11/19/25 17:54 Urine Color [place] 11/19/25 Unknown Urine Appearance Clear (Clear) 11/19/25 Unknown Urine pH 5.5 (4.5-7.5) 11/19/25 Unknown Ur Specific [place] 1.022 (1.000-1.030) 11/19/25 Unknown Urine Protein 1+ (Negative) H 11/19/25 Unknown Urine Glucose (UA) Negative (Negative) 11/19/25 Unknown Urine Ketones Trace (Negative) H 11/19/25 Unknown Urine Nitrite Positive (Negative) A 11/19/25 Unknown Ur Leukocyte Esterase 1+ (Negative) H 11/19/25 Unknown Urine WBC (Auto) 0-5 /hpf (0-5) 11/19/25 Unknown Urine RBC (Auto) 0-2 /hpf (0-2) 11/19/25 Unknown U Hyaline Cast (Auto) 0-2 /lpf (0-2) 11/19/25 Unknown U Epithel Cells (Auto) 0-2 /hpf (0-2) 11/19/25 Unknown Urine Bacteria (Auto) None Seen (None Seen) 11/19/25 Unknown Chest X-Ray Date: 11/19/25 Findings: + NAD
[2025-11-20] MEDS ORDERED: LIDOCAINE 2% 2 ML VIAL/AMP(20MG/ML) INFIL ONE (11:18)
[2025-11-20] MEDS ORDERED: SUGAMMADEX SODIUM 200 MG/2 ML VIAL IV ONE (11:18)
[2025-11-20] MEDS ORDERED: PROPOFOL IV EMULSION 10 MG/ML 20 ML VIAL IV ONE (11:18)
[2025-11-20] MEDS ORDERED: ROCURONIUM BROMIDE 10 MG/ML 5 ML VIAL IV ONE (11:18)
[2025-11-20] MEDS ORDERED: ONDANSETRON INJ 2 MG/ML 2 ML VIAL ONE (11:18)
[2025-11-20] MEDS ORDERED: DEXAMETHASONE SOD INJ 4 MG/ML VIAL ONE ×2 (11:18→11:22)
--- NOTE | 2025-11-20 11:48 | Surgery Progress Note ---
Date of Service November 20, 2025 Assessment & Plan (1) Choledocholithiasis: Plan: 34-year-old presents with choledocholithiasis. There is no evidence of cholecystitis on the ultrasound. He does have a bilirubin of 8. ERCP scheduled today. Will need to determine timing of cholecystectomy after ERCP completed pending findings. Given no evidence of cholecystitis on imaging with normal leukocytosis will plan for outpatient cholecystectomy in the near future with close outpatient surgery office visit next week to schedule for outpatient cholecystectomy. Keep npo. continue medical management. Please call with any questions/concerns. Admission and Anticipated Discharge Date Admission Date: November 19, 2025 Subjective pain in epigastric/ruq with radiation to back, stable, same as yesterday no n,v no fever or chills Physical Exam Constitutional: WD/WN, vitals as above cooperative and comfortable; no acute distress and not ill appearing Respiratory: normal respiratory effort, lungs clear to auscultation Cardiovascular: RRR, no murmur, no edema Gastrointestinal (Abdomen): Inspection/Auscultation: abdomen normal to inspection; abdomen not distended Percussion/Palpation: abdomen soft; abdomen nontender, no guarding, abdomen not rigid and abdomen not firm Skin: no rashes, warm and dry + jaundice Psychiatric: A+Ox3, euthymic affect Results & Data Vital Signs (Past 12 Hours) Vital Signs Temp Pulse Resp BP Pulse Ox O2 Del Method 11/20/25 09:13 36.8 C 91 H 16 136/87 96 Room Air Laboratory Results 11/20/25 11/19/25 11/19/25 Range/Units 05:51 Unknown 17:54 WBC 7.00 13.43 H (4.8-10.8) K/ul RBC 5.05 5.68 (4.70-6.10) M/uL Hgb 14.9 16.6 (14.0-18.0) g/dL Hct 41.8 L 46.5 (42.0-52.0) % MCV 82.8 81.9 (80.0-100.0) fL MCH 29.5 29.2 (25.0-34.0) pg MCHC 35.6 35.7 (32.0-36.0) g/dL RDW Std Deviation 36.8 36.3 L (36.4-46.3) fL RDW Coeff of Lor 12.1 12.2 (11.5-14.5) % Plt Count 228 264 (130-400) K/uL MPV 10.4 10.3 (9.4-12.4) fL Immature Gran % (Auto) 0.3 0.5 % Neut % (Auto) 76.6 86.5 % Lymph % (Auto) 13.3 7.6 % [place] % (Auto) 7.9 4.2 % Eos % (Auto) 1.6 1.0 % Baso % (Auto) 0.3 0.2 % Neut # (Auto) 5.37 11.61 H (1.40-6.50) K/uL Lymph # (Auto) 0.93 L 1.02 L (1.20-3.40) K/uL [place] # (Auto) 0.55 0.57 (0.11-0.59) K/uL Eos # (Auto) 0.11 0.13 (0.00-0.50) K/uL Baso # (Auto) 0.02 0.03 (0.00-0.20) K/uL Immature Gran # (Auto) 0.02 0.07 (0.01-0.20) K/uL PT 10.8 (9.0-12.0) Seconds INR 1.0 (0.9-1.1) Sodium 141 139 (136-145) mmol/L Potassium 4.3 3.9 (3.5-5.1) mmol/L Chloride 106 104 (98-107) mmol/L Carbon Dioxide 27 26 (21-32) mmol/L Anion Gap 8 9 (3-11) BUN 8 10 (6-23) mg/dl Creatinine 1.12 1.08 (0.6-1.4) mg/dl Est Cr Clr Drug Dosing 103.7 107.6 ml/min eGFR 87.86 91.78 BUN/Creatinine Ratio 7.1 L 9.3 L (10-20) Glucose 93 115 H (70-99(Fasting)) mg/dl Calcium 9.2 9.6 (8.6-10.3) mg/dl Magnesium 2.1 (1.7-2.4) mg/dl Total Bilirubin 8.4 H 8.8 H (0.2-1.0) mg/dl AST 136 H 206 H (13-39) U/L ALT 420 H 583 H (7-52) U/L Alkaline Phosphatase 180 H 205 H (34-104) U/L Total Protein 6.5 7.6 (6.0-8.3) gm/dl Albumin 4.1 4.8 (3.4-5.0) gm/dl Globulin 2.4 L 2.8 (2.5-4.0) gm/dl Albumin/Globulin Ratio 1.7 1.7 (0.9-2) Lipase 25 (11-82) U/L Urine Color [place] Urine Appearance Clear (Clear) Urine pH 5.5 (4.5-7.5) Ur Specific [place] 1.022 (1.000-1.030) Urine Protein 1+ H (Negative) Urine Glucose (UA) Negative (Negative) Urine Ketones Trace H (Negative) Urine Blood Negative (Negative) Urine Nitrite Positive A (Negative) Urine Bilirubin 3+ H (Negative) Urine Urobilinogen Negative (Negative) Ur Leukocyte Esterase 1+ H (Negative) Urine WBC (Auto) 0-5 (0-5) /hpf Urine RBC (Auto) 0-2 (0-2) /hpf U Hyaline Cast (Auto) 0-2 (0-2) /lpf U Epithel Cells (Auto) 0-2 (0-2) /hpf Urine Bacteria (Auto) None Seen (None Seen) Urine Mucus Present A (None Prsent) Urine Comment
[2025-11-20] MEDS ORDERED: MIDAZOLAM HCL 1 MG/ML 2ML VIAL ONE (11:59)
[2025-11-20] MEDS ORDERED: PROMETHAZINE HCL 6.25 MG in SODIUM CHLORIDE 0.9% 50 ML IV PRN (12:03)
[2025-11-20] MEDS ORDERED: ATROPINE SULFATE 0.1 MG/ML 10ML SYR IV PRN (12:03)
[2025-11-20] MEDS ORDERED: ONDANSETRON INJ 2 MG/ML 2 ML VIAL IV PRN (12:03)
[2025-11-20] MEDS ORDERED: NALOXONE HCL 0.4 MG/1 ML VIAL/CARP IV PRN (12:03)
[2025-11-20] MEDS ORDERED: FLUMAZENIL 0.1 MG/1 ML 10 ML VIAL IV PRN (12:03)
[2025-11-20] MEDS ORDERED: SUCCINYLCHOLINE CHLORIDE 20 MG/ML 10 ML VIAL IV ONE (12:22)
[2025-11-20] MEDS: INDOMETHACIN 50 MG SUPP PR ONE ×2 (12:33→13:37)
--- NOTE | 2025-11-20 13:04 | GI REPORT ---
[facility] Patient: PHILLIP OLIVO : 1990 Sex at : Male Age: 34 Years Procedure: ERCP Date: 11/20/2025 Attending Physician: Mc Senior MD Referring MD: Referred Self Indications: - Bile duct stone(s) - Elevated liver enzymes Medications: - General Anesthesia - Indomethacin 100 mg KS - See the Anesthesia note for documentation of the administered medications Complications: - No immediate complications. Estimated Blood Loss: - Estimated blood loss was minimal. Procedure: - Prior to the procedure, a History and Physical was performed, and patient medications, allergies and sensitivities were reviewed. The patient's tolerance of previous anesthesia was reviewed. - The risks and benefits of the procedure and the sedation options and risks were discussed with the patient. All questions were answered and informed consent was obtained. - Prophylactic Antibiotics: The patient requires prophylactic antibiotics as clinically indicated based on published guidelines for the planned ERCP. The patient received antibiotic therapy before the procedure. - The ercp scope was introduced through the mouth and advanced to the duodenum and used to inject contrast into the bile duct. - The ERCP was accomplished without difficulty. - The patient tolerated the procedure well. Findings: - The bile duct was deeply cannulated with the short-nosed sphincterotome. Contrast was injected. I personally interpreted the bile duct images. Image quality was adequate. The lower third of the main duct contained filling defect(s) thought to be stones and sludge. - A 10 mm biliary sphincterotomy was made with a short nose sphincterotome using ERBE electrocautery. There was no post-sphincterotomy bleeding. - The biliary tree was swept with a 12 mm balloon starting at the bifurcation. Sludge was swept from the duct. Many stones were removed. No stones remained. The pancreatic duct was not cannulated. Impression: - A filling defect consistent with a stone and sludge was seen on the cholangiogram. - Choledocholithiasis was found. Complete removal was accomplished by biliary sphincterotomy and balloon extraction. - A biliary sphincterotomy was performed. - The biliary tree was swept. Recommendation: - Continue present medications. - Watch for pancreatitis, bleeding, perforation, and cholangitis. - Clear liquid diet. Procedure Code(s): - 11749, Endoscopic retrograde cholangiopancreatography (ERCP); with removal of calculi/debris from biliary/pancreatic duct(s) - 22007, Endoscopic retrograde cholangiopancreatography (ERCP); with sphincterotomy/papillotomy - 36265, Endoscopic catheterization of the biliary ductal system, radiological supervision and interpretation Diagnosis Code(s): - R74.8, Abnormal levels of other serum enzymes - K80.50, Calculus of bile duct without cholangitis or cholecystitis without obstruction - R93.2, Abnormal findings on diagnostic imaging of liver and biliary tract CPT(R) - 2024 copyright [employer]. All Rights Reserved. The CPT codes, CCI edits and ICD codes generated are intended as suggestions and were generated based on input data. These codes are preliminary and upon edger liner review may be revised to meet current compliance and payer requirements. The provider is responsible for the final determination of appropriate codes, and modifiers. Mc Senior MD This document has been electronically signed. Note Initiated:11/20/2025 Note Completed:11/20/2025 1:03 PM [email or web address]\[email or web address]\[id number]
--- NOTE | 2025-11-20 13:39 | Anesthesiology Progress Note ---
Date of Service November 20, 2025 Anesthesia Post Procedure Vital Signs Vital Signs: Temp Pulse Pulse Pulse Resp BP BP 11/20/25 13:30 37 C 95 H 16 128/86 11/20/25 13:20 96 H 12 123/87 11/20/25 13:10 104 H 22 141/102 H 11/20/25 13:04 36 C L 108 H 15 125/100 11/20/25 11:49 36.7 C 105 H 16 144/88 H 11/20/25 09:13 36.8 C 91 H 16 136/87 11/19/25 22:56 36.9 C 90 18 136/94 11/19/25 22:56 36.9 C 90 18 136/94 11/19/25 22:10 84 18 140/92 11/19/25 20:10 88 20 137/92 11/19/25 18:50 92 H 11/19/25 17:37 16 11/19/25 17:37 36.6 C 98 H 18 181/118 H Pulse Ox O2 Del Method 11/20/25 13:30 94 Room Air 11/20/25 13:20 94 Room Air 11/20/25 13:10 94 Room Air 11/20/25 13:04 95 Room Air 11/20/25 11:49 97 Room Air 11/20/25 09:13 96 Room Air 11/19/25 22:56 97 Room Air 11/19/25 22:56 97 Room Air 11/19/25 22:10 97 Room Air 11/19/25 20:10 96 Room Air 11/19/25 18:50 11/19/25 17:37 11/19/25 17:37 100 Pain Intensity Abdomen: Pain Intensity: 3 Transfer of Care Handoff Completed per policy Notes Mental Status: alert / awake / arousable Patient Amnestic to Procedure: Yes Nausea / Vomiting: adequately controlled Pain: adequately controlled Airway Patency, RR, SpO2: stable & adequate BP & HR: stable & adequate Hydration State: stable & adequate Anesthetic Complications: no major complications apparent
--- NOTE | 2025-11-20 13:53 | Fluoroscopy Report ---
INTRAOPERATIVE RADIOGRAPHS CLINICAL HISTORY: ERCP. Fluoro time: 2 minutes 15 seconds Ka,r: 23.80 mGy FINDINGS: 5 spot fluoroscopic views of the right upper quadrant from an ERCP procedure are correlated with abdominal CT dated 11/19/2025. A wire is advanced into the common bile duct. Injected contrast shows mild dilatation of the common bile duct. There is only very mild dilatation of the central intr ahepatic bile ducts. Distal filling defects within the common bile duct likely represent choledocholi thiasis. A balloon sweep of the common duct is performed. IMPRESSION: Intraoperative ERCP images as above. See operative report for detailed findings. Electronically signed by: Robin Landry M.D. 11/20/2025 1:51 PM
[2025-11-20] MEDS: GLUCAGON FOR INJ 1 MG VIAL ONE (13:56)
--- NOTE | 2025-11-20 13:57 | Billing Data ---
Date of Service November 20, 2025 Coding Level of Care Code 76182 SUB INP/OBS CARE
--- NOTE | 2025-11-20 20:43 | Billing Data ---
Date of Service November 20, 2025 Coding Level of Care Code 54803 INT INP/OBS CARE
[2025-11-21 00:20] VITALS: RESP 18
[2025-11-21 04:28] VITALS: TEMP 97.7
[2025-11-21 06:22] LABS: Hematocrit (blood only) 40.1 % (42.0-52.0); Hemoglobin 14.4 g/dL (14.0-18.0); Mean Corpuscular Hemoglobin 29.6 pg (25.0-34.0); Mean Corpuscular Volume 82.3 fL (80.0-100.0); Platelet Count 234 K/uL (130-400); RDW Standard Deviation 36.1 fL (36.4-46.3); Red Blood Count 4.87 M/uL (4.70-6.10); White Blood Count 8.82 K/ul (4.8-10.8)
[2025-11-21 06:39] LABS: Alanine Aminotransferase 344.0 U/L (7-52); Albumin Globulin Ratio 1.6 (0.9-2); Albumin Level 4.0 gm/dl (3.4-5.0); Alkaline Phosphatase 171.0 U/L (34-104); Anion Gap 8.0 (3-11); Bilirubin,Total 5.2 mg/dl (0.2-1.0); Blood Urea Nitrogen 7.0 mg/dl (6-23); Calcium 9.2 mg/dl (8.6-10.3); Carbon Dioxide 26.0 mmol/L (21-32); Chloride 106.0 mmol/L (98-107); Creatinine Clr Calc Pharmacy 133.5 ml/min; Globulin 2.5 gm/dl (2.5-4.0); Glucose 113.0 mg/dl (70-99(Fasting)); Potassium 4.1 mmol/L (3.5-5.1); Sodium 140.0 mmol/L (136-145); Total Protein 6.5 gm/dl (6.0-8.3)
--- NOTE | 2025-11-21 09:06 | Gastroenterology Progress Note ---
Date of Service November 21, 2025 Assessment & Plan (1) Choledocholithiasis: Plan: Status post ERCP with stone extraction clinically doing well no abdominal pain symptoms resolved. Ultimately will need cholecystectomy as outpatient. Would send home with prescription for ciprofloxacin 500 mg twice daily for 3 days. Admission and Anticipated Discharge Date Admission Date: November 19, 2025 Subjective Feels much better no abdominal pain no nausea no vomiting no shortness of breath no chest pain Physical Exam Physical Exam: No acute distress Respiratory rate regular Cardiac rhythm regular Abdomen soft nontender Results & Data Results & Data Vital Signs (Past 12 Hours) Vital Signs Temp Pulse Resp BP Pulse Ox O2 Del Method 11/21/25 04:27 36.5 C 87 18 121/73 94 Room Air 11/21/25 00:20 36.6 C 99 H 18 120/77 93 Room Air Laboratory Results Laboratory Results - last 48 hr 11/19/25 11/19/25 11/20/25 17:54 Unknown 05:51 WBC 13.43 H 7.00 RBC 5.68 5.05 Hgb 16.6 14.9 Hct 46.5 41.8 L MCV 81.9 82.8 MCH 29.2 29.5 MCHC 35.7 35.6 RDW Std Deviation 36.3 L 36.8 RDW Coeff of Lor 12.2 12.1 Plt Count 264 228 MPV 10.3 10.4 Immature Gran % (Auto) 0.5 0.3 Neut % (Auto) 86.5 76.6 Lymph % (Auto) 7.6 13.3 [place] % (Auto) 4.2 7.9 Eos % (Auto) 1.0 1.6 Baso % (Auto) 0.2 0.3 Neut # (Auto) 11.61 H 5.37 Lymph # (Auto) 1.02 L 0.93 L [place] # (Auto) 0.57 0.55 Eos # (Auto) 0.13 0.11 Baso # (Auto) 0.03 0.02 Immature Gran # (Auto) 0.07 0.02 PT 10.8 INR 1.0 Sodium 139 141 Potassium 3.9 4.3 Chloride 104 106 Carbon Dioxide 26 27 Anion Gap 9 8 BUN 10 8 Creatinine 1.08 1.12 Est Cr Clr Drug Dosing 107.6 103.7 eGFR 91.78 87.86 BUN/Creatinine Ratio 9.3 L 7.1 L Glucose 115 H 93 Calcium 9.6 9.2 Magnesium 2.1 Total Bilirubin 8.8 H 8.4 H AST 206 H 136 H ALT 583 H 420 H Alkaline Phosphatase 205 H 180 H Total Protein 7.6 6.5 Albumin 4.8 4.1 Globulin 2.8 2.4 L Albumin/Globulin Ratio 1.7 1.7 Lipase 25 Urine Color [place] Urine Appearance Clear Urine pH 5.5 Ur Specific [place] 1.022 Urine Protein 1+ H Urine Glucose (UA) Negative Urine Ketones Trace H Urine Blood Negative Urine Nitrite Positive A Urine Bilirubin 3+ H Urine Urobilinogen Negative Ur Leukocyte Esterase 1+ H Urine WBC (Auto) 0-5 Urine RBC (Auto) 0-2 U Hyaline Cast (Auto) 0-2 U Epithel Cells (Auto) 0-2 Urine Bacteria (Auto) None Seen Urine Mucus Present A Urine Comment 11/21/25 05:41 WBC 8.82 RBC 4.87 Hgb 14.4 Hct 40.1 L MCV 82.3 MCH 29.6 MCHC 35.9 RDW Std Deviation 36.1 L RDW Coeff of Lor 11.9 Plt Count 234 MPV 10.4 Immature Gran % (Auto) Neut % (Auto) Lymph % (Auto) [place] % (Auto) Eos % (Auto) Baso % (Auto) Neut # (Auto) Lymph # (Auto) [place] # (Auto) Eos # (Auto) Baso # (Auto) Immature Gran # (Auto) PT INR Sodium 140 Potassium 4.1 Chloride 106 Carbon Dioxide 26 Anion Gap 8 BUN 7 Creatinine 0.87 Est Cr Clr Drug Dosing 133.5 eGFR 115.40 BUN/Creatinine Ratio 8.0 L Glucose 113 H Calcium 9.2 Magnesium Total Bilirubin 5.2 H AST 104 H ALT 344 H Alkaline Phosphatase 171 H Total Protein 6.5 Albumin 4.0 Globulin 2.5 Albumin/Globulin Ratio 1.6 Lipase Urine Color Urine Appearance Urine pH Ur Specific [place] Urine Protein Urine Glucose (UA) Urine Ketones Urine Blood Urine Nitrite Urine Bilirubin Urine Urobilinogen Ur Leukocyte Esterase Urine WBC (Auto) Urine RBC (Auto) U Hyaline Cast (Auto) U Epithel Cells (Auto) Urine Bacteria (Auto) Urine Mucus Urine Comment PG Care Time/CCT Total # of Minutes Spent Total Time Spent with Patient: Total time spent is greater than 50% in coordination of care (as documented) at patient's floor/unit and/or counseling patient: Coding Level of Care Code 55808 SUB INP/OBS CARE Diagnoses Choledocholithiasis K80.50
[2025-11-21 09:17] VITALS: BP 133/79; PULSE 105; O2SAT 96
--- NOTE | 2025-11-21 09:39 | Surgery Progress Note ---
Date of Service November 21, 2025 Assessment & Plan (1) Choledocholithiasis: Plan: discharge today per medical team appt with Dr Laboy; 1 week lap lala as outpatient Admission and Anticipated Discharge Date Admission Date: November 19, 2025 Subjective Feels well no complaints Status post ERCP and stent placement Taking p.o. and ambulate pain control Review of Systems Constitutional: no fever and no chills Respiratory: no cough and no dyspnea Cardiovascular: no chest pain Gastrointestinal: no abdominal pain, no nausea and no vomiting Neurologic: no localized weakness Physical Exam Constitutional: WD/WN, vitals as above Respiratory: normal respiratory effort Cardiovascular: Rate/Rhythm: regular rate and regular rhythm Gastrointestinal (Abdomen): Inspection/Auscultation: abdomen normal to inspection; abdomen not distended Percussion/Palpation: abdomen soft; abdomen nontender Musculoskeletal: Head/Neck/Chest: normocephalic and head atraumatic Results & Data Vital Signs (Past 12 Hours) Vital Signs Temp Pulse Resp BP Pulse Ox O2 Del Method 11/21/25 09:16 36.5 C 105 H 18 133/79 96 Room Air 11/21/25 04:27 36.5 C 87 18 121/73 94 Room Air 11/21/25 00:20 36.6 C 99 H 18 120/77 93 Room Air
--- NOTE | 2025-11-21 12:50 | Discharge Summary ---
Date of Service November 21, 2025 Admission HPI Per Admitting Provider Bhupendra is a pleasant 34yo gentleman with no significant PMH who presented to the ED for 3-week history of waxing and waning abdominal pain that gradually worsened since 11/17. The pain was described as sharp, located in the RUQ associated with nausea, vomiting, and loss of appetite. He has no history of abdominal surgeries. Denies fevers, chills, CP, SOB, or complaints. Admission Exam Per Admitting Provider Physical Exam Physical Exam: GA: well groomed, well nourished in no apparent distress. AAOx3 HEENT: head normocephalic, atraumatic. EOMI. Scleral icterus RESP: vesicular breath sounds b/l. No wheezes, rhonchi, or rales CARDIOVASCULAR: S1 and S2 heard. No murmurs, rubs, or gallops. Radial pulses 2+ b/l RRR GI: no tenderness or masses felt to palpation. Negative Mondragon's sign MSK: no gross abnormalities or focal deficits SKIN: warm, dry, no edema PSYCH: appropriate mood and affect NEURO: no focal deficits. speech fluent Principal Diagnosis Choledocholithiasis, Cholelithiasis Discharge Exam Constitutional WD/WN, vitals as above Eyes EOM intact bilaterally Respiratory normal respiratory effort, lungs clear to auscultation Cardiovascular Rate/Rhythm: regular rate and regular rhythm Heart Sounds: normal S1 and normal S2; no murmur Gastrointestinal (Abdomen) Percussion/Palpation: abdomen soft; abdomen nontender Psychiatric Eye Contact: good eye contact Speech: normal rate/rhythm/volume of speech Thought Process: goal directed thought process and linear/logical thought process Discharge Data Allergies Allergy/AdvReac Type Severity Reaction Status Date / Time No Known Allergies Allergy Verified 11/20/25 11:47 Consultations 11/19/25 20:22 Consult Gastroenterology Routine Consult General Surgery Routine 11/19/25 21:03 ED Decision to Admit Stat 11/21/25 08:57 Consult VANESSA global safety officer Stat 11/21/25 09:40 Consult VANESSA global safety officer Stat Procedures Performed Operation Date: 11/20/25 08:20 Actual Procedures p Endoscopic Retrograde Cholangiopancreato - Mc Senior MD Ordered Studies 11/19/25 17:43 CT abd pelvis IV con only Stat 11/19/25 19:17 US gallbladder Stat 11/20/25 13:00 FL ERCP biliary ductal Routine Hospital Course (1) Choledocholithiasis: (2) Transaminitis: (3) Abnormal urinalysis: Plan Bhupendra is a pleasant 34yo gentleman with no significant PMH who presented to the ED for 3-week history of waxing and waning abdominal pain that gradually worsened since 11/17. The pain was described as sharp, located in the RUQ associated with nausea, vomiting, and loss of appetite. Lab workup in the ED notable elevated bilirubin level, transaminitis, leukocytosis (13), and choledocholithiasis. He will be admitted and managed for choledocholithiasis. #Choledocholithiasis #Cholelithiasis - CT imaging notable for choledocholithiasis with mild intra and extrahepatic biliary ductal dilatation - Gallbladder US confirmed dilated common bile duct. - Bilirubin 8.8 (11/19) and is 8.4 on 11/20/25 - Ordered IV Protonix for acid suppression. -Pain management: morphine 2mg q3hrs prn for moderate pain and 4mg q3hrs for severe pain -Zofran prn for nausea, vomiting -had Zosyn 4.5g q8hrs. Per GI recs will discharge patient with cipro 500mg BID for 3 days. -Gen-Surg on board. Will follow peripherally. -GI consulted -Switched to low fat diet today (11/21/25) -IVF, LR 80mls/hr -ERCP showed gallstone and sludge which they cleared out. -Per GI recs, will send patient home with cipro 500mg BID for 3 days. Encourage low fat diet. -Will need to follow up with PCP and get repeat LFTs within a week. Will also need to have follow-up with surgery outpatient in a week to discuss cholecystectomy. #Transaminitis secondary to above -AST still extremely elevated but trending downwards. -follow AM labs -avoid acetaminophen -Will need repeat LFT labs outpatient. #Abnormal Urinalysis secondary to above UA: urine bili elevated -Urine culture is negative. VTE prophylaxis: low risk, SCDs Total Time Total Time Spent Total Time Spent (In Minutes): as per attending Discharge Plan Discharge Items Patient Disposition: Home - Self-Care Reason For Visit: ABDOMINAL PAIN Discharge Diagnosis: Abdominal Pain Condition on Discharge: Fair Activity: Resume your previous activity Non-emergency contact: Primary Care Provider Call non-emergency contact if: your symptoms worsen, your pain is not controlled and your temperature is above 101.5 Follow-up/Referrals: Júnior Chew, [Primary Care Provider] - Diet: Low Fat Addtl Attending Provider Instructions: You were admitted into the hospital for abdominal pain. We provided IV fluid and imaging of your stomach and gallbladder. The images showed that your bile duct was dilated suggesting a possible gallstone. A procedure called an ERCP done which found gallstones and sludge in your bile duct which they cleared out. Due to the gallstone blocking your bile duct, your liver function labs were elevated. Fortunately, once the gallstone and sludge was removed the lab values were going back down to normal. However, because they are still high, we recommend you get repeat liver function lab to see if your liver is doing okay. The GI doctors also recommend you take an antibiotic for 3 days to protect yourself from possible infection. Please follow-up with your PCP within the next week and see the surgeon to discuss getting your gallbladder removed. New Medication -Ciprofloxacin 500mg take one tablet twice a day for 3 days. CONTACT YOUR PRIMARY CARE PROVIDER if you experience any of the following: Worsening of symptoms Fever, chills, or fatigue Difficulty following your treatment plan, or difficulty taking medications CALL 911 OR GO TO THE EMERGENCY DEPARTMENT if you experience any of the f ollowing: Sudden, severe abdominal pain or nausea/vomiting Severe chest pain, or chest pain that radiates (moves) to your jaw or arm Sudden, severe shortness of breath or difficulty breathing It was a pleasure treating you. [facility]! Pending Studies at Discharge: No Stand-Alone Forms: My [facility] Zoom, Smoking Cessation Medications and DC Order Prescriptions: New ciprofloxacin HCl 500 mg tablet 500 mg PO BID 3 Days Qty: 6 0RF Discharge Orders: Discharge Order (Routine); Ordered 11/21/25 Ordered By: Franki Pabon Admission Data Admit Date/Time: 11/19/25 22:11 Attending Provider: Marvin Armijo Admit Provider: Cedrick Colby Primary Care Provider: Júnior Chew Other Providers: Mc Senior I; Tobi Laboy; Camron Sidhu Supervising Physician Co-Signing Physician Notes Patient seen and examined, chart reviewed, case discussed with Dr. Pabon, DO and I agree with the assessment and plan as above except as otherwise noted above. General: A&Ox3. NAD. Cooperative. HEENT: Atraumatic, normocephalic. Pulm: CTAB A&P. -wheezes, -rales, -rhonchi. Symmetrical chest rise. No increase work of breathing. No respiratory distress. Cardiac: RRR, -mrg. Radial pulses intact and symmetrical. Abdominal: Nontender, nondistended, soft. BS present. All labs and images reviewed Admitted for acute choledocolithiasis without cholecystitis. Doing well, all symptoms resolved s/p ERCP/balloon extraction/spincterotomy.. Tolerating diet today. Will be followed as outpatiente by surgery for interval lala. LFTs downtrending. Continue cipro x3 days BID per GI recommendations. Stable for outpt followup. Low fat diet. Seen independently day of discharge, total time spend on counseling/chart review/direct pataient care/documentation approximately 35 minutes. Followup as outpatient with PCP to draw CMP within 1 week. Return precautions discussed. Agree w/ above Resident Activity Tracking Resident Involvement: Resident Care Provided Care Provided: Adult Hospital Medicine
--- NOTE | 2025-11-21 13:40 | Billing Data ---
Date of Service November 21, 2025 Coding Level of Care Code 73365 INP/OBS DISCH >30 MIN
[2025-11-21] MEDS ORDERED: CIPROFLOXACIN 500 MG TAB PO SCH (15:00)
--- NOTE | 2025-11-22 13:44 | Electrocardiogram Report ---
Test Reason : Blood Pressure : */* mmHG Vent. Rate : 89 BPM Atrial Rate : 89 BPM P-R Int : 154 ms QRS Dur : 84 ms QT Int : 356 ms P-R-T Axes : 44 24 33 degrees QTcB Int : 433 ms Normal sinus rhythm Normal ECG No previous ECGs available Confirmed by Cedrick Anthony ([id number]) on 11/22/2025 1:44:22 PM Referred By: REFERRED SELF Confirmed By: Cedrick Anthony
== END 2025-11-21 15:05 | disposition home or self-care (01) | DRG 446 ==
LOC: ED 17:37 → 3E 22:11 → INTOOBSV 22:11 → SUATTDRO 22:11 → 3E 22:48